=== PATIENT | female | born 1955 | race Caucasian/White ===

== ENCOUNTER → 2016-10-21 | Day surgery (SDC) | payer OTHER ==
[2016-10-16 11:13] VITALS: BMI 30.3
[~2016-10-21] MED LIST: LIDOCAINE HCL/PF 2% SDV 5ML VIAL ONE; PROPOFOL 20 ML ONE
[2016-10-21 09:25] VITALS: PULSE 66; TEMP 98.2
[2016-10-21 09:42] VITALS: BP 125/74
== END | disposition home or self-care (01) ==
LOC: FASU-ENDO 07:55
PROVIDERS: ATTEND Internal Medicine Gastroenterology
PROC: 0DJD8ZZ Inspection of Lower Intestinal Tract, Via Natural or Artificial Opening Endoscopic (ICD-10-PCS; principal; 2016-10-21 08:57)
DX: Z12.11 Encounter for screening for malignant neoplasm of colon (principal)